=== PATIENT | male | born 1950 | race Caucasian/White ===

== ENCOUNTER → 2018-12-22 | Outpatient (CLI) | payer MEDICARE ==
[2018-12-22 13:32] LABS: HCT 42.6 % (39.0-53.0); HGB 13.9 gm/dL (13.0-17.5); MCH 30.9 pg (25.0-35.0); MCHC 32.6 g/dL (31.0-37.0); MCV 94.8 fL (80.0-100.0); Mean Platelet Volume 7.1; Platelet Count 439 k/uL (150-450); RBC 4.49 m/uL (4.30-5.90); RDW 13.6 % (11.5-15.5)
[2018-12-22 13:42] LABS: INR 0.9 (<1.2); Partial Thromboplastin Time 26.4 sec (22.0-30.0); Prothrombin Time 10.2 sec (9.0-12.0)
[2018-12-22 13:46] LABS: Appearance,Urine Clear (Clear); Bilirubin,Urine Negative (Negative); Blood,Urine Trace (Negative); Color,Urine Yellow; Glucose,Urine (UA) Negative (Negative); Hyaline Casts,Urine 1 /lpf (0-2); Ketones,Urine Negative (Negative); Leukocyte Esterase,Urine Negative (Negative); Mucus,Urine Few /hpf; Nitrite,Urine Negative (Negative); PH, Urine 5.5 (5.0-8.0); Protein,Urine Trace (Negative); RBC,Urine 1 /hpf (0-5); Specific Gravity,Urine 1.011 (1.001-1.035); Squamous Epithelial Cell,Urine <1 /hpf (0-4); Urobilinogen,Urine <2.0 mg/dL (<2.0); WBC,Urine 1 /hpf (0-5)
[2018-12-22 13:47] LABS: ALT 34 U/L (21-72); AST 27 U/L (17-59); Albumin 3.9 g/dL (3.5-5.0); Alkaline Phosphatase 78 U/L (38-126); Anion Gap 8 mmol/L; Blood Urea Nitrogen 14 mg/dL (9-20); Calcium 9.6 mg/dL (8.4-10.2); Carbon Dioxide 31 mmol/L (22-30); Chloride 103 mmol/L (98-107); Glucose 147 mg/dL (74-99); Potassium 4.6 mmol/L (3.5-5.1); Sodium 142 mmol/L (137-145); Total Bilirubin 1.1 mg/dL (0.2-1.3); Total Protein 7.6 g/dL (6.3-8.2)
== END | disposition home or self-care (01) ==
LOC: LABPAT 12:23
PROVIDERS: ATTEND Orthopaedic Surgery
DX: Z01.812 Encounter for preprocedural laboratory examination (principal); Z01.818 Encounter for other preprocedural examination
CPT/HCPCS: 36415; 80053; 81001; 85027; 85610; 85730; 87070; 93005

== ENCOUNTER 2018-12-26 06:49 | Inpatient (IN) | payer BC, MEDICARE ==
[2018-12-21 17:15] VITALS: BMI 31.8
[~2018-12-26 06:49] MED LIST: ACETAMINOPHEN TAB 500 MG TAB PO ONE; LIDOCAINE 1% 20 ML VIAL (10MG/ML) FOR IV START INTRADERMA PRN; MELOXICAM 7.5 MG TAB PO ONE; MIDAZOLAM (PF) 2 MG/2 ML VIAL IV PRN; ROPIVACAINE 246.25 MG, EPINEPHrine 0.5 MG, KETOROLAC 30 MG, cloNIDine HCL/PF 80 MCG, WA... MISCELLANE ONE; TRANEXAMIC ACID 1,000 MG in SODIUM CHLORIDE 0.9% 50 ML IVPB ONE; ceFAZolin IN SWFI 2 GM/20 ML SYRINGE IVP ONE; fentaNYL (PF) 50 MCG/ML 2 ML AMP IV PRN
[2018-12-26] MEDS: LACTATED RINGERS 1,000 ML IV SCH ×2 (07:48→15:51)
[2018-12-26] MEDS ORDERED: HYDROmorphone 0.5 MG/0.5 ML SYRINGE IVP PRN ×3 (08:42)
[2018-12-26] MEDS ORDERED: MAGNESIUM HYDROXIDE 2,400 MG/10 ML CUP PO PRN (08:42)
[2018-12-26] MEDS ORDERED: NALOXONE 0.4 MG/ML 1 ML VIAL IV PRN (08:42)
[2018-12-26] MEDS ORDERED: HYDROcodone/APAP 5-325MG 1 EACH TAB PO PRN (08:42)
[2018-12-26] MEDS ORDERED: hydrOXYzine PAMOATE 25 MG CAP PO PRN (08:42)
[2018-12-26] MEDS ORDERED: DIAZEPAM 5 MG TAB PO PRN (08:42)
[2018-12-26] MEDS ORDERED: ONDANSETRON 4 MG/2 ML VIAL IVP PRN (08:42)
[2018-12-26] MEDS ORDERED: fentaNYL (PF) 50 MCG/ML 2 ML AMP ONE (09:11)
[2018-12-26] MEDS ORDERED: SODIUM CHLORIDE 0.9% IRRIG 1,000 ML BTL IRRIGATION ONE (09:11)
[2018-12-26] MEDS ORDERED: SODIUM CHLORIDE 0.9% 100 ML BAG ONE (09:11)
[2018-12-26] MEDS ORDERED: HEPARIN SODIUM,PORCINE 10,000 UNIT/ML 1 ML VIAL ONE (09:11)
[2018-12-26] MEDS ORDERED: TRANEXAMIC ACID 1,000 MG/10 ML VIAL ONE (09:11)
[2018-12-26] MEDS ORDERED: PROPOFOL 10 MG/ML 20 ML VIAL IV ONE (09:11)
[2018-12-26] MEDS ORDERED: MIDAZOLAM 2 MG/2 ML VIAL ONE (09:11)
[2018-12-26] MEDS ORDERED: ePHEDrine SULFATE/0.9% NACL/PF 50 MG/5 ML SYRINGE IV ONE (09:11)
[2018-12-26] MEDS ORDERED: ceFAZolin 3,000 MG in SODIUM CHLORIDE 0.9% IRRIGATIO 3,000 ML IRRIGATION ONE (09:15)
--- NOTE | 2018-12-26 10:31 | P.OP ---
Date of Procedure: 12/26/18 Preoperative Diagnosis: Severe osteoarthritis left hip Postoperative Diagnosis: Severe osteoarthritis left hip Procedure(s) Performed: Left total hip arthroplasty with a direct anterior approach Implants: Amaro [employer] nephew Polarstem size 3 standard [employer]hew R3, 3 hole acetabular shell, 56 mm [employer]hew reflection 6.5 mm cancellus screw, 20 mm, 25 mm [employer] R3, XLPE 20 acetabular liner [employer]hew Oxinium femoral head 36 m, +0 All components were press-fit. The articulation is Oxinium on polyethylene. Anesthesia: spinal Surgeon: Amrit Mo Claims Administrator #1: Donna Forman Estimated Blood Loss (ml): 200 Pathology: other (Femoral head) Condition: stable Disposition: PACU Indications for Procedure: After failure of conservative treatment we discussed the surgical and nonsurgical treatment options at length. Patient wishes to proceed with a total hip arthroplasty with a direct anterior approach. Complications specific to this procedure were discussed at length, including but not limited to infection, leg length discrepancy, dislocation, and nerve injury. Patient is aware of all these complications and informed consent was obtained Operative Findings: The operative findings are consistent with severe osteoarthritis of the right hip Description of Procedure: Patient was seen and evaluated in the preoperative area, consent was reviewed, and the surgical site was marked with a skin marker. Patient was then brought to the operating room and given prophylactic antibiotics intravenously. 1 g of Tranexamic acid was also given. A spinal anesthetic was administered by the anesthesia department. The patient was then placed on the [place] table with the bony prominences well-padded. The hip area was then prepped and draped in usual sterile fashion. A universal timeout was then performed, which confirmed the patient's name, surgical site, ALLERGIES, and procedure being performed. Next the incision site was located at 1 cm distal and 1 cm lateral to the anterior superior iliac spine. The skin and subcutaneous tissues were sharply incised. Incision was carefully dissected down to the fascia overlying the tensor fascia stefany muscle. This fascia was then incised in line with the incision. Next, using blunt finger dissection, the tensor fascia stefany muscle was dissected off its investing fascia. The muscle was then carefully retracted laterally with a cobra retractor over the lateral neck of the femur. Next, the circumflex vessels were identified and cauterized using the AquaMantis device. The anterior hip capsule was then exposed. The capsule was then opened and an inverted T fashion. Cobra retractors were then placed intracapsularly. The proximal femur was then visualized. The femoral neck was then osteotomized appropriate level above the lesser trochanter. Small amount of traction was placed with the [place] table. A small wedge of bone was then removed from the remaining femoral head. Next, using a corkscrew femoral head was easily removed from the acetabulum. On gross visual inspection, the femoral head had complete loss of articular cartilage in multiple periarticular osteophytes. Attention was then turned to the acetabulum. the acetabulum was exposed and any remaining labrum was excised. Sequential reaming of the acetabulum was performed using fluoroscopic guidance. When the appropriate size was reached, a trial was then placed. The position and fit of the trial was checked with fluoroscopy. The trial was then removed. Then, using fluoroscopic guidance, the final implant was impacted at 20 of anteversion and 40 of abduction, and fully seated in the acetabulum. 2 screws were then placed in the acetabulum. Again fluoroscopy was used to check position of the screws. Next, the liner was then impacted, with a 20 elevated liner located in the anterior superior quadrant. Component locking was confirmed. Attention was then directed to the femur. With the aid of the [place] table, the femur was externally rotated to approximately 130, extended, and abducted under the opposite leg. A side hook was then placed under the proximal femur, and the side hook elevator was used to elevate the proximal femur. Retractors were then placed. A capsular release was performed, as well as a release of the conjoined tendon, which afforded excellent visualization of the proximal femur. Next, a box osteotome was used to lateralize the proximal femur. A hand ii tube bender was then used to locate the femoral canal. Sequential broaching was then performed with appropriate size which afforded excellent fixation in the proximal femur. A trial was then placed with appropriate head and neck, and the hip was gently reduced with the aid of the [place] table. Fluoroscopy was then used to check position of the components, as well as to ensure equal leg lengths. The hip was then gently dislocated and the trials were then removed. Final implants were then impacted and the hip was again reduced. Final fluoroscopic x-rays confirmed that the components were in anatomic position, as well as equal leg lengths. The hip was also taken through range of motion, and found to be stable. The hip was then copiously irrigated with antibiotic solution with pulsatile lavage. The hip was then irrigated with Irrisept solution. The soft tissues were then injected with a ropivacaine solution, which consisted of 246.25 mg of ropivacaine, 0.5 mg of epinephrine, 30 mg of Toradol, 80 g of clonidine, and 48.45 mL of sterile water, for a total of 100 mL of fluid injected. A second dose of 1 g of Tranexamic acid was also given. the fascia was then closed with 2-0 strata fix suture. The subcutaneous tissue was closed with 3-0 Vicryl. The subcuticular tissue was closed with 3-0 strata fix suture. The skin was then closed with Dermabond glue and a sterile silver dressing. The patient was then transferred to the recovery room in stable condition. The assistant grocery SHAI Elliott was required due to the complexity of surgery, and the need for skilled surgical tech for positioning, draping, exposure, retraction, and closure of the wound.
[2018-12-26] MEDS ORDERED: LACTATED RINGERS 1,000 ML IV ONE ×2 (10:54→12:55)
[2018-12-26] MEDS ORDERED: HYDROmorphone 1 MG/ML 1 ML SYRINGE IVP ONE (11:00)
[2018-12-26] MEDS ORDERED: ONDANSETRON 4 MG/2 ML VIAL IVP ONE (11:36)
--- NOTE | 2018-12-26 12:01 | XR ---
Limited left hip HISTORY: Status post left hip arthroplasty Single frontal view of the left hip Patient is status post left hip arthroplasty. There is anatomic alignment. Lucency present in the sof t tissues. IMPRESSION: Orthopedic follow-up.
--- NOTE | 2018-12-26 13:41 | XR ---
Limited left hip HISTORY: Left hip arthroplasty 2 intraoperative C-arm images document the procedure.
--- NOTE | 2018-12-26 13:42 | FL ---
Fluoroscopy HISTORY: Hip arthroplasty 36 seconds fluoroscopy time supplied to the referring clinician. 2 intraoperative C-arm images docum ent the procedure. See dictated report from orthopedic surgery.
[2018-12-26] MEDS: SODIUM CHLORIDE 0.9% 1,000 ML IV SCH (15:51)
[2018-12-26] MEDS: ceFAZolin IN SWFI 2 GM/20 ML SYRINGE IVP SCH (17:48)
[2018-12-26] MEDS: ASPIRIN 325 MG TAB PO SCH (21:00)
[2018-12-26] MEDS ORDERED: SENNOSIDES-DOCUSATE SODIUM 1 EACH TAB PO SCH (21:00)
[2018-12-27] MEDS: ceFAZolin IN SWFI 2 GM/20 ML SYRINGE IVP SCH (00:54)
[2018-12-27] MEDS: SODIUM CHLORIDE 0.9% 1,000 ML IV SCH ×2 (01:06→12:20)
[2018-12-27] MEDS: HYDROcodone/APAP 5-325MG 1 EACH TAB PO PRN ×2 (05:24→12:35)
[2018-12-27 06:51] LABS: Basophils # (A) 0.1 k/uL (0-0.2); Basophils % (A) 1 %; Eosinophils # (A) 0.5 k/uL (0-0.7); Eosinophils % (A) 5 %; HGB 12.2 gm/dL (13.0-17.5); Lymphocytes # (A) 1.3 k/uL (1.0-4.8); Lymphocytes % (A) 14 %; MCH 30.3 pg (25.0-35.0); MCV 94.6 fL (80.0-100.0); Mean Platelet Volume 6.5; Monocytes # (A) 0.7 k/uL (0-1.0); Monocytes % (A) 7 %; Neutrophils % (A) 73 %; Platelet Count 371 k/uL (150-450); RBC 4.02 m/uL (4.30-5.90); RDW 13.6 % (11.5-15.5); WBC 9.6 k/uL (3.8-10.6)
[2018-12-27 08:16] VITALS: BP 159/81; PULSE 87; RESP 18; TEMP 98
[2018-12-27] MEDS: LACTATED RINGERS 1,000 ML IV SCH (08:29)
[2018-12-27] MEDS ORDERED: MELOXICAM 7.5 MG TAB PO SCH (09:00)
--- NOTE | 2018-12-27 09:04 | P.DS ---
Providers Date of admission: 12/26/18 06:49 Expected date of discharge: 12/27/18 Attending physician: Amrit Mo Consults: 12/26/18 08:42 Consult Physician Routine Consulting Provider: Tal Moncada Consult Reason/Comments: medical management Do you want consulting provider notified?: Yes Primary care physician: Farhan Frances - Discharge Diagnosis(es) (1) Osteoarthritis of left hip Current Visit: Yes Status: Acute (2) Status post total hip replacement, left Current Visit: Yes Status: Acute Hospital Course: This is a 68-year-old male with known history of degenerative arthritis of the left hip. The patient presents for evaluation. After discussion and consideration patient elects to proceed with total hip arthroplasty. The patient is seen preoperatively by Dr. Mo and medically cleared for surgery by their primary care physician. Patient is admitted to [facility] on 12/26/2018 for total hip arthroplasty. The procedures performed without complication or sequelae. The patient is doing well postoperatively. Labs and vital signs are stable on day of discharge. On day of discharge patient's hip incision is healing well. There is minimal erythema. There is no drainage noted at this time. There is minimal soft tissue swelling to the hip and thigh. Patient has full foot and ankle motion without difficulty or pain. Neurovascular status to the left lower extremity is intact. Patient is discharged home in good condition. Please see med rec for accurate list of home medications. Plan - Discharge Summary Discharge Rx Participant: Yes New Discharge Prescriptions: New Aspirin 325 mg PO BID #60 tab HYDROcodone/APAP 5-325MG [[place] 5-325] 1 - 2 tab PO Q6HR PRN #56 tab PRN Reason: Pain Sennosides [Senokot] 1 tab PO BID #60 tablet No Action Multivitamins, Thera [Multivitamin (formulary)] 1 tab PO DAILY Ibuprofen 800 mg PO Q6H PRN PRN Reason: Pain Discharge Medication List Ibuprofen 800 mg PO Q6H PRN 12/21/18 [History] Multivitamins, Thera [Multivitamin (formulary)] 1 tab PO DAILY 12/21/18 [History ] Aspirin 325 mg PO BID #60 tab 12/27/18 [Rx] HYDROcodone/APAP 5-325MG [[place] 5-325] 1 - 2 tab PO Q6HR PRN #56 tab 12/27/18 [ Rx] Sennosides [Senokot] 1 tab PO BID #60 tablet 12/27/18 [Rx] Follow up Appointment(s)/Referral(s): Amrit Mo DO [Doctor of Osteopathic Medicine] - 2 Weeks Activity/Diet/Wound Care/Special Instructions: Weightbearing as tolerated with walker. Leave dressing intact. Dressing may be removed by home care nurse in 10 days. May shower with dressing on. Please follow-up with [facility] in 2 weeks and call with any questions or concerns, . Discharge Disposition: HOME WITH HOME HEALTH SERVICES
[2018-12-27] MEDS: ASPIRIN 325 MG TAB PO SCH (09:43)
--- NOTE | 2018-12-27 19:41 | CONS ---
CONSULTATION DATE OF CONSULTATION: 12/27/2018. REASON FOR CONSULTATION: Medical management requested by Dr. Mo. CONSULTATION: This is a very pleasant 68-year-old patient of Dr. Farhan Frances. Chronic stable medical conditions include GERD, hard of hearing, primary osteoarthritis, . The patient has undergone left total hip arthroplasty. Some pain is present. No nausea, vomiting. Did tolerate his diet. No dizziness, lightheadedness. Did work with therapy. The patient's son is present. REVIEW OF SYSTEMS: CONSTITUTIONAL: None. HEENT: Chronic tinnitus. RESPIRATORY: None. CARDIOVASCULAR: None. GASTROINTESTINAL: Heartburn. GENITOURINARY: None. MUSCULOSKELETAL: Pain in the joints. DERMATOLOGICAL, HEMATOLOGIC, LYMPHATICS: none. PSYCHIATRY: None. NEUROLOGICAL: None. PAST MEDICAL HISTORY: GERD, hard of hearing, primary osteoarthritis, chronic tinnitus. Left hip pain. PAST SURGICAL HISTORY: Cholecystectomy, orthopedic surgery, left ACL repair. SOCIAL HISTORY: Alcohol occasionally. Smoked half a pack a day for 10 years, stopped in 2002. 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 FAMILY HISTORY: Prostate cancer. HOME MEDICATIONS: 1. Multivitamin 1 tablet p.o. daily. 2. Senokot 1 tablet p.o. b.i.d. ALLERGIES: IV CONTRAST DYE. PHYSICAL EXAMINATION: VITAL SIGNS: Temperature 98, pulse 87, respiratory 18, blood pressure 159/81, pulse 91 percent on room air. GENERAL APPEARANCE: Well built, BMI 31.9. Sitting up, awake. EYES: Pupils are equal. Conjunctivae normal. HEENT: External appearance of nose and ears normal. Oral cavity normal. NECK: JVD not raised. Mass not palpable. RESPIRATORY: Effort normal. Lungs are clear. CARDIOVASCULAR: First and second sounds normal. No edema. ABDOMEN: Soft, nontender. Liver and spleen not palpable. LYMPHATICS: No lymph nodes palpable in the neck or axilla. PSYCHIATRY: Alert and oriented x3. Mood and affect normal. NEUROLOGICAL: Pupils equal. Cranial nerves grossly intact. Power and sensation grossly intact. MUSCULOSKELETAL: Dressing over the left hip. Additionally, note the patient's hearing is decreased. INVESTIGATIONS: White count 9.6, hemoglobin 12.2. Preop potassium was 4.6. ASSESSMENT: 1. Left total hip arthroplasty. 2. Obesity, BMI 31.9. 3. Chronic tinnitus. 4. Primary osteoarthritis. 5. Gastroesophageal reflux disease. PLAN: The patient should see a dietitian as an outpatient for weight loss measures. The patient can follow up for ENT for his chronic tinnitus. Other home medications to be renewed. The patient for DVT prophylaxis getting aspirin per Dr. Mo. Care was discussed with the patient. Questions were answered. The patient should follow up with Dr. Frances upon discharge. Thank you, Dr. Mo. Copy to Dr. Frances. MMGIOVANNIL / SLOANEN: [id number] /
== END 2018-12-27 14:43 | disposition home health service (06) | DRG 470 ==
LOC: 2ORMAIN 06:49 → 4SSUR 13:31
PROVIDERS: ADMIT Orthopaedic Surgery; ATTEND Orthopaedic Surgery
PROC: 30233N0 Transfusion of Autologous Red Blood Cells into Peripheral Vein, Percutaneous Approach (ICD-10-PCS; 2018-12-26)
PROC: 0SRB06A Replacement of Left Hip Joint with Oxidized Zirconium on Polyethylene Synthetic Substitute, Uncemented, Open Approach (ICD-10-PCS; principal; 2018-12-26 09:15)
DX: M16.12 Unilateral primary osteoarthritis, left hip (principal); Z68.31 Body mass index [BMI] 31.0-31.9, adult; E66.9 Obesity, unspecified; H93.19 Tinnitus, unspecified ear; H91.90 Unspecified hearing loss, unspecified ear; K21.9 Gastro-esophageal reflux disease without esophagitis; F17.200 Nicotine dependence, unspecified, uncomplicated; Z79.899 Other long term (current) drug therapy; Z90.49 Acquired absence of other specified parts of digestive tract; Z91.041 Radiographic dye allergy status; Z83.3 Family history of diabetes mellitus; Z80.42 Family history of malignant neoplasm of prostate; Z82.49 Family history of ischemic heart disease and other diseases of the circulatory system
CPT/HCPCS: 73501; 85025; 86850; 86900; 86901; 88300